=== PATIENT | female | born 1955 | race Caucasian/White ===

== ENCOUNTER 2018-03-03 14:31 | Outpatient (CLI) | payer OTHER ==
[2018-03-03 14:57] LABS: BASOPHILS # (AUTO) 0.1 10^3/uL (0.0-0.1); BASOPHILS % (AUTO) 0.9 %; EOSINOPHILS # (AUTO) 0.2 10^3/uL (0.0-0.7); EOSINOPHILS % (AUTO) 2.8 %; LYMPHOCYTES # (AUTO) 1.3 10^3/uL (1.5-3.5); LYMPHOCYTES % (AUTO) 22.5 %; MEAN CORPUSCULAR HEMOGLOBIN 28.4 pg (27.0-31.0); MEAN CORPUSCULAR HGB CONC 33.4 g/dL (32.0-36.0); MEAN CORPUSCULAR VOLUME 85.2 fL (81.0-99.0); MEAN PLATELET VOLUME 7.4 fL (7.9-10.8); MONOCYTES # (AUTO) 0.3 10^3/uL (0.0-1.0); MONOCYTES % (AUTO) 4.9 %; NEUTROPHILS # (AUTO) 3.9 10^3/uL (1.5-6.6); NEUTROPHILS % (AUTO) 68.9 %; PLT - PLATELET COUNT 294 10^3/uL (130-450); RED BLOOD COUNT 4.21 10^6/uL (4.20-5.40); RED CELL DISTRIBUTION WIDTH 13.2 % (12.0-15.0); WHITE BLOOD COUNT 5.6 x10^3/uL (4.8-10.8)
[2018-03-03 15:10] LABS: ALBUMIN 3.6 g/dL (3.2-5.5); ALBUMIN/GLOBULIN RATIO 0.9 (1.0-2.2); BILIRUBIN,TOTAL 0.5 mg/dL (0.2-1.0); CALCIUM 8.8 mg/dL (8.5-10.3); CREATININE 0.7 mg/dL (0.4-1.0); TOTAL PROTEIN 7.6 g/dL (6.7-8.2)
== END 2018-03-03 14:32 | disposition home or self-care (01) ==
LOC: LAB 14:31
PROVIDERS: ATTEND Internal Medicine
DX: R53.83 Other fatigue (principal)
CPT/HCPCS: 36415; 80053; 84443; 85025

== ENCOUNTER 2018-03-28 15:28 | Outpatient (CLI) | payer OTHER ==
[2018-03-28 16:06] LABS: % IRON SATURATION 9 % (20-50); IRON 23 ug/dL (28-170); TOTAL IRON BINDING CAPACITY 245 ug/dL (250-450); TRANSFERRIN 175 mg/dL (192-382)
--- NOTE | 2018-03-29 09:01 | XRAY Report ---
Procedure Date: 03/28/2018 Accession Number: [id number] / [id number] Procedure: XR - Sinus Complete CPT Code: FULL RESULT: EXAM: Sinus Complete DATE: 03/28/2018 4:10 PM CLINICAL HISTORY: EUSTACHIAN TUBE DYSFUNCTION, GARRY COMPARISON: None. TECHNIQUE: 4 views. FINDINGS: Bones: Normal. No fractures or bone lesions. Sinuses: Normal. No opacities or fluid levels. Mastoid Air Cells: Clear. Other: Normal. No soft tissue swelling. IMPRESSION: Normal sinus radiography. RADIA
== END 2018-03-28 15:29 | disposition home or self-care (01) ==
LOC: LAB 15:28
PROVIDERS: ATTEND Internal Medicine
DX: G25.81 Restless legs syndrome (principal); R53.83 Other fatigue; J30.2 Other seasonal allergic rhinitis; H69.83 Other specified disorders of Eustachian tube, bilateral; R51 Headache
CPT/HCPCS: 36415; 70220; 82728; 83540; 84466

== ENCOUNTER 2018-12-28 12:51 | Outpatient (CLI) | payer OTHER ==
[2018-12-28 17:44] LABS: BASOPHILS % (AUTO) 0.7 %; EOSINOPHILS # (AUTO) 0.2 10^3/uL (0.0-0.7); EOSINOPHILS % (AUTO) 2.6 %; HGB - HEMOGLOBIN 12.1 g/dL (12.0-16.0); LYMPHOCYTES # (AUTO) 1.5 10^3/uL (1.5-3.5); LYMPHOCYTES % (AUTO) 25.5 %; MEAN CORPUSCULAR HEMOGLOBIN 28.1 pg (27.0-31.0); MEAN CORPUSCULAR HGB CONC 32.9 g/dL (32.0-36.0); MEAN CORPUSCULAR VOLUME 85.5 fL (81.0-99.0); MEAN PLATELET VOLUME 8.8 fL (7.9-10.8); MONOCYTES # (AUTO) 0.3 10^3/uL (0.0-1.0); MONOCYTES % (AUTO) 5.4 %; NEUTROPHILS # (AUTO) 3.9 10^3/uL (1.5-6.6); NEUTROPHILS % (AUTO) 65.8 %; PLT - PLATELET COUNT 264 10^3/uL (130-450)
== END 2018-12-28 12:52 | disposition home or self-care (01) ==
LOC: LAB.F 12:51
PROVIDERS: ATTEND Nurse Practitioner Family
DX: K57.30 Diverticulosis of large intestine without perforation or abscess without bleeding (principal)
CPT/HCPCS: 36415; 85025

== ENCOUNTER 2020-06-18 08:00 | Outpatient (CLI) | payer OTHER ==
[2020-06-18 19:50] LABS: BASOPHILS # (AUTO) 0.1 10^3/uL (0.0-0.1); BASOPHILS % (AUTO) 0.8 %; EOSINOPHILS # (AUTO) 0.2 10^3/uL (0.0-0.7); EOSINOPHILS % (AUTO) 2.9 %; HGB - HEMOGLOBIN 13.3 g/dL (12.0-16.0); LYMPHOCYTES # (AUTO) 1.6 10^3/uL (1.5-3.5); LYMPHOCYTES % (AUTO) 27.7 %; MEAN CORPUSCULAR HEMOGLOBIN 28.8 pg (27.0-31.0); MEAN CORPUSCULAR HGB CONC 32.4 g/dL (32.0-36.0); MEAN PLATELET VOLUME 10.4 fL (7.9-10.8); MONOCYTES # (AUTO) 0.3 10^3/uL (0.0-1.0); MONOCYTES % (AUTO) 5.8 %; NEUTROPHILS # (AUTO) 3.7 10^3/uL (1.5-6.6); NEUTROPHILS % (AUTO) 62.6 %; PLT - PLATELET COUNT 312 10^3/uL (130-450); RED BLOOD COUNT 4.62 10^6/uL (4.20-5.40); RED CELL DISTRIBUTION WIDTH 12.9 % (12.0-15.0); WHITE BLOOD COUNT 5.9 x10^3/uL (4.8-10.8)
[2020-06-18 20:13] LABS: ALBUMIN 4.2 g/dL (3.2-5.5); ALBUMIN/GLOBULIN RATIO 1.2 (1.0-2.2); BILIRUBIN,TOTAL 0.8 mg/dL (0.2-1.0); CALCIUM 9.9 mg/dL (8.5-10.3); CREATININE 0.7 mg/dL (0.4-1.0); TOTAL PROTEIN 7.6 g/dL (6.7-8.2)
== END 2020-06-18 23:59 | disposition home or self-care (01) ==
LOC: LAB.S 08:00
PROVIDERS: ATTEND Physician Assistant Medical
DX: R22.1 Localized swelling, mass and lump, neck (principal)
CPT/HCPCS: 36415; 80053; 84443; 85025

== ENCOUNTER 2020-06-19 11:38 | Outpatient (CLI) | payer OTHER ==
--- NOTE | 2020-06-19 16:13 | Ultrasound Report ---
PROCEDURE: Head or Neck Soft Tissue INDICATIONS: LOCALIZED SWELLING, MASS AND LUMP, NECK TECHNIQUE: Real time scanning was performed of the neck region of interest, with image documentation . COMPARISON: None. FINDINGS: No soft tissue neck adenopathy is seen bilaterally bilaterally. The right thyroid lobe estrella sures 2.0 x 2.1 x 5.0 cm and the left measures 1.2 x 2.0 x 4.9 cm with the isthmus thickness 4 mm. Th ere are several scattered bilateral small cysts, each less than 5 mm in diameter requiring no follow- up. There appears to be asymmetric calcification at the left sternoclavicular joint margin when sonal red to the right. IMPRESSION: Several scattered small cysts are seen within the thyroid lobe bilaterally, less than 5 mm in diamete r and requiring no follow-up. Note is made of asymmetric calcification at the left sternoclavicular articulation likely degenerativ e in origin. Sonographic assessment below the level of surface calcification is very limited and depe nding on the clinical status follow-up by contrast-enhanced MR scanning could be obtained if an under lying bone lesion such as infection or neoplasm is clinically suspected. Reviewed by: Bala Reilly MD on 06/19/2020 4:12 PM PDT Approved by: Bala Reilly MD on 06/19/2020 4:12 PM PDT Station ID: [id number]
== END 2020-06-19 11:39 | disposition home or self-care (01) ==
LOC: DI 11:38
PROVIDERS: ATTEND Physician Assistant Medical
DX: E04.2 Nontoxic multinodular goiter (principal); M25.812 Other specified joint disorders, left shoulder
CPT/HCPCS: 76536

== ENCOUNTER 2020-07-18 12:32 | Outpatient (CLI) | payer OTHER ==
--- NOTE | 2020-07-19 07:12 | DEXA Report ---
PROCEDURE: Dexa Spine and/or Hip INDICATIONS: POSTMENOPAUSAL TECHNIQUE: Dual energy x-ray absorptiometry (DXA) was performed on a Lap[employer] System. Regions measur ed are the AP Spine, femoral neck, and if needed forearm. COMPARISON: None. FINDINGS: Lumbar Spine: Bone Mineral Density 1.075 g/cm/cm,T score -2.2, osteopenia Left Hip: Bone Mineral Density 0.795 g/cm/cm,T score -1.7, osteopenia Left Femoral Neck: Bone Mineral Density 0.763 g/cm/cm, T score -2.0, osteopenia (T score greater or equal to -1.0: NORMAL) (T score from -1.1 to -2.4: OSTEOPENIA) (T score less than or equal to -2.5 to: OSTEOPOROSIS) Impression: Osteopenia. Patients with diagnosis of osteoporosis or osteopenia should have regular bone mineral density assess ment. For those eligible for Medicare, routine testing is allowed once every 2 years. Testing frequ ency can be increased for patients who have rapidly progressing disease or for those who are receivin g medical therapy to restore bone mass. Reviewed by: Viky Villa MD, PhD on 07/18/2020 4:56 PM PDT Approved by: Viky Villa MD, PhD on 07/18/2020 4:56 PM PDT Station ID: [id number]
== END 2020-07-18 12:33 | disposition home or self-care (01) ==
LOC: DI 12:32
PROVIDERS: ATTEND Registered Nurse
DX: M85.89 Other specified disorders of bone density and structure, multiple sites (principal); Z78.0 Asymptomatic menopausal state
CPT/HCPCS: 77080

== ENCOUNTER 2020-07-18 12:34 | Outpatient (CLI) | payer OTHER ==
--- NOTE | 2020-07-24 09:07 | Mammography Report ---
BILATERAL DIGITAL SCREENING MAMMOGRAM 3D/2D: 07/18/2020 CLINICAL: Routine screening. Additional films were requested but not obtained. The tissue of both breasts is heterogeneously dens e. This may lower the sensitivity of mammography. There is a 0.4 cm oval equal density asymmetry with an obscured and circumscribed margin in the right breast anterior depth superior region seen on the mediolateral oblique view only. Fatty hilum can no t be visualized. There are intramammary lymph nodes in both breasts with fatty gregor. No other significant masses, calcifications, or other findings are seen in either breast. IMPRESSION: INCOMPLETE: NEED PRIOR STUDIES FOR COMPARISON The 0.4 cm oval equal density asymmetry in the right breast resembles an intramammary node and is ind eterminate. Additional views with possible ultrasound are recommended. This exam was interpreted at Station ID: [id number]. NOTE: For mammograms, a report in lay terms will be sent to the patient. Approximately 15% of breast malignancies will not be visualized mammographically. In the management of a palpable breast mass, a negative mammogram must not discourage biopsy of a clinically suspicious lesion. Electronically Signed By: Ryley Agustin M.D. slc/:07/24/2020 08:58:34 ACR BI-RADS Category 0 Need prior studies for comparison 3340F PARENCHYMAL PATTERN: (D) - The breast(s) demonstrate(s) heterogeneously dense fibroglandular pargeney marni. BI-RADS CATEGORY: (0) - 0 Mammo and [place] [id number] Immediate follow-up LATERALITY: (B)
== END 2020-07-18 12:35 | disposition home or self-care (01) ==
LOC: DI 12:34
DX: Z12.31 Encounter for screening mammogram for malignant neoplasm of breast (principal); N64.89 Other specified disorders of breast
CPT/HCPCS: 77063; 77067

== ENCOUNTER 2020-12-01 12:40 | Outpatient (CLI) | payer OTHER ==
--- NOTE | 2020-12-02 12:51 | Mammography Report ---
UNILATERAL RIGHT DIGITAL DIAGNOSTIC MAMMOGRAM 3D/2D: 12/01/2020 CLINICAL: Patient returns today to evaluate a focal asymmetry in the right breast. Comparison is made to exam dated: 07/18/2020 mammogram - [facility]. The tissue o f right breast is heterogeneously dense. This may lower the sensitivity of mammography. There is a 2 mm oval equal density focal asymmetry with a circumscribed margin in the right breast at 9 o'clock anterior depth. This is seen in additional views. There are other asymmetries with disti nct morphology of lymph nodes. No other significant masses or calcifications are seen in the breast. IMPRESSION: INCOMPLETE: NEEDS ADDITIONAL IMAGING EVALUATION The 2 mm oval equal density focal asymmetry in the right breast most likely is a cyst or a lymph node but remains indeterminate. An ultrasound is recommended. Ultrasound is recommended for full evalu ation of this area. This exam was interpreted at Station ID: [id number]. NOTE: For mammograms, a report in lay terms will be sent to the patient. Approximately 15% of breast malignancies will not be visualized mammographically. In the management of a palpable breast mass, a negative mammogram must not discourage biopsy of a clinically suspicious lesion. Electronically Signed By: Lois jerez/:12/01/2020 14:34:47 ACR BI-RADS Category 0: Incomplete 3340F PARENCHYMAL PATTERN: (D) - The breast(s) demonstrate(s) heterogeneously dense fibroglandular marya grider. BI-RADS CATEGORY: (0) - 0 Ultrasound [id number] Immediate follow-up LATERALITY: (B)
--- NOTE | 2020-12-02 12:51 | Ultrasound Report ---
LIMITED ULTRASOUND OF RIGHT BREAST: 12/01/2020 CLINICAL: Patient returns today to evaluate a focal asymmetry in the right breast. Comparison is made to exams dated: 12/01/2020 mammogram and 07/18/2020 mammogram - [facility]. Color flow and real-time ultrasound of the right breast 9 o'clock region were performed. Levy scale images of the real-time examination were reviewed. There is a benign appearing 0.3 cm x 0.3 cm x 0.2 cm oval lymph node in the right breast at 9 o'clock anterior depth 2 cm from the nipple. This oval lymph node displays fatty hilum. This correlates wi th mammography findings. Color flow imaging demonstrates that there is no vascularity present. IMPRESSION: BENIGN There is no sonographic evidence of malignancy. The 0.3 cm lymph node in the right breast corresponds with the mammogram findings and is benign. Return to annual mammogram screening schedule is recommended. Findings and recommendations were conveyed to the patient at time of exam. This exam was interpreted at Station ID: [id number]. Electronically Signed By: Lois jerez/:12/01/2020 14:37:24 Ultrasound BI-RADS: 2 Benign BI-RADS CATEGORY: (2) - 2 Mammogram [id number] return to screening LATERALITY: (B)
== END 2020-12-01 12:41 | disposition home or self-care (01) ==
LOC: DI 12:40
PROVIDERS: ATTEND Physician Assistant Medical
DX: R59.0 Localized enlarged lymph nodes (principal)

== ENCOUNTER 2022-06-14 08:57 | Outpatient (CLI) | payer OTHER | END 2022-06-14 08:58 | disposition home or self-care (01) | LOC: DI 08:57 | PROVIDERS: ATTEND Registered Nurse | DX: Z53.9 Procedure and treatment not carried out, unspecified reason (principal) ==

== ENCOUNTER 2022-12-24 15:49 | Outpatient (CLI) | payer OTHER ==
[2022-12-24 15:58] LABS: BASOPHILS # (AUTO) 0.1 10^3/uL (0.0-0.1); BASOPHILS % (AUTO) 1.1 %; EOSINOPHILS # (AUTO) 0.4 10^3/uL (0.0-0.7); EOSINOPHILS % (AUTO) 5.8 %; HCT - HEMATOCRIT 38.4 % (37.0-47.0); HGB - HEMOGLOBIN 12.3 g/dL (12.0-16.0); LYMPHOCYTES # (AUTO) 1.9 10^3/uL (1.5-3.5); LYMPHOCYTES % (AUTO) 29.8 %; MEAN CORPUSCULAR HEMOGLOBIN 28.2 pg (27.0-31.0); MEAN CORPUSCULAR VOLUME 88.1 fL (81.0-99.0); MEAN PLATELET VOLUME 9.5 fL (7.9-10.8); MONOCYTES # (AUTO) 0.4 10^3/uL (0.0-1.0); MONOCYTES % (AUTO) 6.6 %; NEUTROPHILS # (AUTO) 3.5 10^3/uL (1.5-6.6); NEUTROPHILS % (AUTO) 56.5 %; PLT - PLATELET COUNT 374 10^3/uL (130-450); RED BLOOD COUNT 4.36 10^6/uL (4.20-5.40); RED CELL DISTRIBUTION WIDTH 12.5 % (12.0-15.0); WHITE BLOOD COUNT 6.3 x10^3/uL (4.8-10.8)
== END 2022-12-24 15:50 | disposition home or self-care (01) ==
LOC: LAB 15:49
PROVIDERS: ATTEND Ophthalmology
DX: H47.10 Unspecified papilledema (principal)
CPT/HCPCS: 36415; 85025; 85651; 86140

== ENCOUNTER 2024-04-05 12:56 | Outpatient (CLI) | payer OTHER | END 2024-04-05 12:57 | disposition home or self-care (01) | LOC: NS 12:56 | DX: E78.00 Pure hypercholesterolemia, unspecified (principal); Z71.3 Dietary counseling and surveillance; Z71.89 Other specified counseling | CPT/HCPCS: 97802 ==